=== PATIENT | male | born 1925 | race Caucasian/White ===

== ENCOUNTER 2016-06-19 09:50 | Emergency (ER) | payer MEDICARE, BC ==
--- NOTE | 2016-06-19 11:43 | EDM.PDOC ---
ED HPI Trauma - General Chief Complaint: Lower Extremity Injury/Pain Stated Complaint: SWOLLEN FOOT Time Seen by Provider: 06/19/16 10:03 Source: Reports: Patient, Family History Limitations: Reports: No limitations - History of Present Illness INITIAL COMMENTS - FREE TEXT/NARRATIVE: 89 years old w m came to the ed with his son due to right leg swelling in the past few days. No pain or redness, no SOB, no chest pain or other acute medical issues. Pt drinks a lot of coffee. Symptom Onset Date: 06/16/16 Symptom Onset Time: 07:00 Occurred When: last week Occurred Where: home Method of Injury: unknown Severity: mild Pain/Injury Location: Reports: lower extremity, right Consciousness: Reports: no loss of consciousness Associated Symptoms: Reports: denies other symptoms Allergies/ADRs: Allergies No Known Allergies Allergy (Verified 06/19/16 12:20) Home Medications: Ambulatory Orders Tamsulosin HCl [Flomax] 0.4 mg PO BEDTIME 09/22/14 [Confirmed 06/19/16] Past Medical History HEENT History: Reports: None Other Respiratory History: SLEEPS USING O2 AT NIGHT PER [place] Other Gastrointestinal History: colon polyps Genitourinary History: Reports: Other (see below) Other Genitourinary History: family states he had some kidney issues and that 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 Both sons deny dialysis. Social & Family History - Tobacco Use Smoking Status *Q: Never Smoker Years of Tobacco use: 65 Packs/Tins Daily: 1 Used Tobacco, but Quit: Yes Month Tobacco Last Used: 03/2014 Second Hand Smoke Exposure: No - Alcohol Use Days Per Week of Alcohol Use: 0 - Recreational Drug Use Recreational Drug Use: No Drug Use in Last 12 Months: No Review of Systems - Review of Systems Review Of Systems: See Below Constitutional: Reports: no symptoms Eyes: Reports: no symptoms Ears: Reports: no symptoms Nose: Reports: no symptoms Mouth/Throat: Reports: no symptoms Respiratory: Reports: No Symptoms Cardiovascular: Reports: no symptoms GI/Abdominal: Reports: No symptoms Genitourinary: Reports: no symptoms Musculoskeletal: Reports: no symptoms Skin: Reports: no symptoms Neurological: Reports: No Symptoms Psychiatric: Reports: no symptoms Trauma Exam - Physical Exam Exam: See Below Exam Limited By: Physical impairment General Appearance: Reports: alert, WD/WN, mild distress Head: Reports: atraumatic, normocephalic Eyes: bilateral eye: normal inspection Ears: Reports: normal external exam Nose: Reports: normal inspection, normal mucousa, no blood Throat/Mouth: Reports: Normal inspection, Normal lips, Normal oropharynx Neck: Reports: non-tender, full range of motion, normal alignment Respiratory Exam: Reports: no respiratory distress, lungs clear, normal breath sounds Cardiovascular: Reports: normal peripheral pulses, regular rate, rhythm, no edema, no JVD, no murmur GI/Abdominal: Reports: normal bowel sounds, soft, non tender, no organomegaly (Male) Exam: Deferred Rectal (Males) Exam: Deferred Back: Reports: full range of motion, normal inspection, non-tender Extremities: Reports: pelvis stable, other (left lower leg edema) 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 No pain or redness, no SOB, no chest pain or other acute medical issues. Pt drinks a lot of coffee. PE: right leg edema, nonpitting 1+ Labs: elevated BUN/CE ratio, nl WBC Imaging: Venous Doppler was negative for DVT Impression: Lymphedema right lower leg, dehydration. Plan: D/C with instructions Last Recorded V/S: Last Vital Signs Temp 36.9 C 06/19/16 10:03 Pulse 88 06/19/16 11:45 Resp 18 06/19/16 11:45 BP 99/56 L 06/19/16 11:45 Pulse Ox 95 06/19/16 11:45 - Orders/Labs/Meds Orders: Active Orders 24 hr Category Date Time Status VL Duplex Lwr Ext Veins Ltd Rt [US] Stat Exams 06/19/16 10:19 Taken Labs: Laboratory Tests 06/19/16 06/19/16 06/19/16 Range/Units 10:27 10:27 10:27 WBC 10.7 (4.5-12.0) X10-3/uL RBC 4.36 (4.30-5.75) x10(6)uL Hgb 13.2 (11.5-15.5) g/dL Hct 39.7 (30.0-51.3) % MCV 90.9 (80-96) fL MCH 30.3 (27.7-33.6) pg MCHC 33.3 (32.2-35.4) g/dL RDW 14.1 (11.5-15.5) % Plt Count 294 (125-369) X10(3)uL MPV 8.2 (7.4-10.4) fL Neut % (Auto) 85.0 H (46-82) % Lymph % (Auto) 5.5 L (13-37) % [place] % (Auto) 8.2 (4-12) % Eos % (Auto) 1 (1.0-5.0) % Baso % (Auto) 0 (0-2) % Neut # (Auto) 9.1 H (1.6-8.3) # Lymph # (Auto) 0.6 (0.6-5.0) # [place] # (Auto) 0.9 (0.0-1.3) # Eos # (Auto) 0.1 (0.0-0.8) # Baso # (Auto) 0.0 (0.0-0.2) # PT 10.5 (8.7-11.1) INR 1.04 (0.89-1.13) Sodium 140 (135-145) mmol/L Potassium 4.8 (3.5-5.3) mmol/L Chloride 104 (100-110) mmol/L Carbon Dioxide 30 H (23-29) mmol/L BUN 29 H (8-23) mg/dL Creatinine 1.4 H (0.6-1.3) mg/dL Est Cr Clr Drug Dosing 33.93 mL/min Estimated GFR (MDRD) 48 L (>60) BUN/Creatinine Ratio 20.7 H (9-20) Glucose 125 H (80-116) mg/dL Calcium 8.9 (8.6-10.2) mg/dL Departure - Departure Time of Disposition: 11:40 Disposition: Home, Self-Care 01 Condition: good Clinical Impression: Lymphedema Instructions: Lymphedema Referrals: Avni Carlson MD [Primary Care Provider] - Forms: ED Department Discharge Additional Instructions: Please elevate r leg, please follow up with your PMD/[facility] a.s.a.p. Please increase water intake, Please come back to the if symptoms get worse acutely. - My Orders Last 24 Hours: My Active Orders 06/19/16 10:19 VL Duplex Lwr Ext Veins Ltd Rt [US] Stat - Assessment/Plan Last 24 Hours: My Active Orders 06/19/16 10:19 VL Duplex Lwr Ext Veins Ltd Rt [US] Stat
[2016-06-19 12:26] VITALS: BP 99/56
--- NOTE | 2016-06-20 12:30 | US ---
INDICATION: Swelling right lower extremity, question DVT. DUPLEX ULTRASOUND, RIGHT LOWER EXTREMITY VEINS: Utilizing 2-D real time, duplex Doppler spectral analysis, and color flow imaging, examination of the right lower extremity veins - deep veins and greater saphenous - revealed the deep venous structures and the proximal greater saphenous to be patent with normal compressibility and no evidence of deep venous thrombosis. The anterior tibial vein was difficult to visualize. The peroneal vein was not visualized. Valves were not evaluated due to patient inability to cooperate with that portion of the examination. IMPRESSION: No evidence of deep venous thrombosis. Some limitation in visualization, especially peroneal veins which were not visualized. MTDD
== END 2016-06-19 11:50 | disposition home or self-care (01) ==
LOC: FB.ED 09:50 → SUPCPDRO 09:50 → FB.ED 11:50
DX: I89.0 Lymphedema, not elsewhere classified (principal); E86.0 Dehydration
CPT/HCPCS: 36415; 80048; 85025; 85610; 93971-RT; 99283; 99284

== ENCOUNTER 2016-11-28 11:29 | Inpatient (IN) | payer MEDICARE, BC ==
--- NOTE | 2016-11-28 12:46 | EDM.PDOC ---
ED HPI GENERAL MEDICAL PROBLEM - General Chief Complaint: Lower Extremity Injury/Pain Stated Complaint: rt hip injury Time Seen by Provider: 11/28/16 12:35 Source of Information: Reports: Patient, RN History Limitations: Reports: No Limitations - History of Present Illness INITIAL COMMENTS - FREE TEXT/NARRATIVE: 89 yo male fell this past Monday and has not been able to bear wgt since. Went to the clinic and they told him he needed to come to the ER. Pain is tolerable when not bearing wgt. Pain on the right. Onset: Sudden Onset Date: 11/26/16 Duration: Day(s):, Intermittent Location: Reports: Lower Extremity, Right Quality: Reports: Ache Severity: Moderate Improves with: Reports: Rest Worsens with: Reports: Movement (especially weight bearing.) Context: Reports: Trauma (elderly fall) Associated Symptoms: Reports: No Other Symptoms Treatments PERSONNEL SPECIALIST: Reports: Other (see below) (none) - Related Data Allergies Allergy/AdvReac Type Severity Reaction Status Date / Time No Known Allergies Allergy Verified 11/28/16 12:24 Home Meds: Home Meds Tamsulosin HCl [Flomax] 0.4 mg PO BEDTIME 09/22/14 [History] Past Medical History HEENT History: Reports: None Other Respiratory History: SLEEPS USING O2 AT NIGHT PER [place] Other Gastrointestinal History: colon polyps Genitourinary History: Reports: Other (See Below) Other Genitourinary History: family states he had some kidney issues and that 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 Both sons deny dialysis. - Past Surgical History GI Surgical History: Reports: Colonoscopy Social & Family History - Tobacco Use Smoking Status *Q: Former Smoker Years of Tobacco use: 65 Packs/Tins Daily: 1 Used Tobacco, but Quit: Yes Month Tobacco Last Used: 2014 Second Hand Smoke Exposure: No - Alcohol Use Days Per Week of Alcohol Use: 0 - Recreational Drug Use Recreational Drug Use: No Drug Use in Last 12 Months: No Review of Systems - Review of Systems Review Of Systems: See Below Constitutional: Reports: No Symptoms Eyes: Reports: No Symptoms Ears: Reports: No Symptoms Nose: Reports: No Symptoms Mouth/Throat: Reports: No Symptoms Respiratory: Reports: No Symptoms Cardiovascular: Reports: No Symptoms GI/Abdominal: Reports: No Symptoms Genitourinary: Reports: No Symptoms Musculoskeletal: Reports: Joint Pain (R hip) Skin: Reports: No Symptoms Neurological: Reports: No Symptoms ED EXAM, GENERAL - Physical Exam Exam: See Below Exam Limited By: No Limitations General Appearance: WD/WN, No Apparent Distress Course - Vital Signs Last Recorded V/S: Last Vital Signs Temp 36.9 C 11/28/16 12:26 Pulse 63 11/28/16 12:26 Resp 16 11/28/16 12:26 BP 111/51 L 11/28/16 12:26 Pulse Ox 98 11/28/16 12:26 - Orders/Labs/Meds Orders: Active Orders 24 hr Category Date Time Status Hip Min 2V or 3V w Pelvis Rt [CR] Stat Exams 11/28/16 12:34 Ordered BASIC METABOLIC PANEL,BMP [CHEM] Stat Lab 11/28/16 13:12 Ordered CBC W/O DIFF,HEMOGRAM [HEME] Stat Lab 11/28/16 13:12 Ordered UA W/MICROSCOPIC [URIN] Stat Lab 11/28/16 13:12 Uncollected Departure - Departure Time of Disposition: 13:27 Disposition: Admitted As Inpatient 68 Condition: Fair Clinical Impression: Acute pelvic pain Pelvic fracture Qualifiers: Encounter type: initial encounter Pelvic bone location: other part of pelvis Fracture type: closed Qualified Code(s): S32.89XA - Fracture of other parts of pelvis, initial encounter for closed fracture - Discharge Information Referrals: Avni Carlson MD [Primary Care Provider] - Forms: ED Department Discharge - My Orders Last 24 Hours: My Active Orders 11/28/16 12:34 Hip Min 2V or 3V w Pelvis Rt [CR] Stat 11/28/16 13:12 BASIC METABOLIC PANEL,BMP [CHEM] Stat CBC W/O DIFF,HEMOGRAM [HEME] Stat UA W/MICROSCOPIC [URIN] Stat - Assessment/Plan Last 24 Hours: My Active Orders 11/28/16 12:34 Hip Min 2V or 3V w Pelvis Rt [CR] Stat 11/28/16 13:12 BASIC METABOLIC PANEL,BMP [CHEM] Stat CBC W/O DIFF,HEMOGRAM [HEME] Stat UA W/MICROSCOPIC [URIN] Stat
[2016-11-28] MEDS ORDERED: Sodium Chloride 0.9% 10 ML Syringe FLUSH PRN (13:31)
[2016-11-28] MEDS ORDERED: Acetaminophen 325 MG Tab PO PRN (13:31)
[2016-11-28] MEDS ORDERED: Polyethylene Glycol 3350 Powder 17 GM Packet PO PRN (13:31)
[2016-11-28] MEDS ORDERED: Ondansetron 4 MG Tab.DIS PO PRN (13:31)
--- NOTE | 2016-11-28 14:01 | CR ---
INDICATION: Fall, unable to bear weight. PELVIS WITH RIGHT HIP: Frontal view of the pelvis with AP and lateral views of the right hip revealed somewhat transverse fractures through the inferior and superior pubic rami on the right with approximately 3-mm inferior offset of the medial superior ramus fracture fragment and only very minimal offset at the inferior pubic ramus fracture site. The hip itself appears to be intact with only mild degenerative changes present and the hip joint space well maintained. There are some degenerative changes at the sacroiliac joints. Degenerative changes and disk disease are noted in the visualized lumbosacral spine. IMPRESSION: Inferior and superior pubic ramus fracture sites on the right. Adequate position and alignment suggested. MTDD
[2016-11-28] MEDS: Acetaminophen/HYDROcodone 325-5 MG Tab PO PRN (14:31)
--- NOTE | 2016-11-28 17:29 | PCM.HP ---
H&P History of Present Illness - General Date of Service: 11/28/16 Admit Problem/Dx: Admission Diagnosis/Problem Admission Diagnosis/Problem Fracture of pelvis Source of Information: EMS History Limitations: Reports: Altered Mental Status - History of Present Illness Initial Comments - Free Text/Narative: This 89-year-old male patient that fell 2 days ago. Was brought to clinic and then sent to ER was diagnosed pelvic fracture. I asked cautious the patient is completely confused. He thinks he is in [place] and denies any pain in his pelvis. He doesn't know why he is here or where he is at. I cut the information from the ER doctor's note. - Related Data Allergies/Adverse Reactions: Allergies Allergy/AdvReac Type Severity Reaction Status Date / Time No Known Allergies Allergy Verified 11/28/16 12:24 Home Medications: Home Meds Tamsulosin HCl [Flomax] 0.4 mg PO BEDTIME 09/22/14 [History] Acetaminophen [Tylenol Extra Strength] 1,000 mg PO BID 11/28/16 [History] Past Medical History HEENT History: Reports: Cataract, Hard of Hearing, Impaired Vision Cardiovascular History: Reports: Heart Failure Respiratory History: Reports: COPD, Other (See Below) Other Respiratory History: SLEEPS USING O2 AT NIGHT PER [place], acute respiratory failure, 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, Gastrointestinal History: Reports: Colon Polyp Other Gastrointestinal History: colon polyps Genitourinary History: Reports: Acute Renal Failure, BPH, Retention, Urinary, Other (See Below) Other Genitourinary History: hematuria, CKD, Musculoskeletal History: Reports: Back Pain, Chronic, Gout Neurological History: Reports: Other (See Below) Other Neuro History: spinal meningitis Psychiatric History: Reports: Dementia, Psychosis, Other (See Below) Other Psychiatric History: Alteration of consciousness Hematologic History: Reports: Anemia, Other (See Below) Other Hematologic History: leukocytosis Oncologic (Cancer) History: Reports: Other (See Below) Other Oncologic History: skin - Past Surgical History GI Surgical History: Reports: Colonoscopy, Other (See Below) Other GI Surgeries/Procedures: colon surgery Social & Family History - Tobacco Use Smoking Status *Q: Former Smoker Years of Tobacco use: 72 Packs/Tins Daily: 1.5 Used Tobacco, but Quit: Yes Month Tobacco Last Used: 2014 Second Hand Smoke Exposure: No - Caffeine Use Caffeine Use: Reports: Coffee - Alcohol Use Days Per Week of Alcohol Use: 0 - Recreational Drug Use Recreational Drug Use: No Drug Use in Last 12 Months: No H&P Review of Systems - Review of Systems: Review Of Systems: Unable To Obtain Exam - Exam Exam: See Below - Vital Signs Vital Signs: Last Vital Signs Temp 98.0 F 11/28/16 16:00 Pulse 85 11/28/16 16:00 Resp 18 11/28/16 16:00 BP 123/63 11/28/16 16:00 Pulse Ox 93 L 11/28/16 16:00 Weight: 149 lb 8 oz - Exam General: Alert, Cooperative. No: Oriented, Mild Distress HEENT: Mucosa Moist & [place], Posterior Pharynx Clear Neck: Supple, Trachea Midline. No: Carotid Bruit Lungs: Clear to Auscultation, Normal Respiratory Effort. No: Crackles, Rales, Rhonchi Cardiovascular: Regular Rate, Regular Rhythm. No: Systolic Murmur, Diastolic Murmur GI/Abdominal Exam: Normal Bowel Sounds, Soft, Non-Tender, No Organomegaly, No Distention Extremities: Other (Patient has some pain when he laxatives quadriceps. I did not palpate his pelvis.) Neurological: Normal Speech, Normal Tone Neuro Extensive - Mental Status: Alert, Normal Mood/Affect. No: Oriented x3, Normal Cognition Psychiatric: Alert, Normal Affect, Normal Mood - Patient Data Lab Results Last 24 hrs: Laboratory Results - last 24 hr 11/28/16 Range/Units 14:00 Urine Color Yellow (YELLOW) Urine Appearance Clear (CLEAR) Urine pH 7.0 H (5.0-6.5) Ur Specific [place] 1.010 (1.010-1.025) Urine Protein Negative (NEGATIVE) mg/dL Urine Glucose (UA) Normal (NEGATIVE) mg/dL Urine Ketones Negative (NEGATIVE) mg/dL Urine Occult Blood Negative (NEGATIVE) Urine Nitrite Negative (NEGATIVE) Urine Bilirubin Negative (NEGATIVE) Urine Urobilinogen Normal (NEGATIVE) mg/dL Ur Leukocyte Esterase Negative (NEGATIVE) Urine RBC 0-5 (0) Urine WBC 0-5 (0) Ur Squamous Epith Cells Occasional (NS,R,O) Urine Bacteria Rare H (NS) Result Diagrams: 11/28/16 13:28 11/28/16 13:28 *Q Meaningful Use (ADM) - VTE *Q VTE Criteria *Q: - Stroke *Q Stroke Criteria *Q: - AMI *Q AMI Criteria *Q: - Problem List (1) Confusion SNOMED Code(s): 261729683 ICD Code: R41.0 - DISORIENTATION, UNSPECIFIED Status: Acute Current Visit : Yes (2) Palliative care status SNOMED Code(s): 197092846 ICD Code: Z51.5 - ENCOUNTER FOR PALLIATIVE CARE Status: Acute Current Visit: Yes (3) Pelvic fracture SNOMED Code(s): 06190962 ICD Code: S32.9XXA - FRACTURE OF UNSP PARTS OF LUMBOSACRAL SPINE AND PELVIS, INIT Status: Acute Current Visit: Yes Qualifiers: Encounter type: initial encounter Pelvic bone location: other part of pelvis Fracture type: closed Qualified Code(s): S32.89XA - Fracture of other parts of pelvis, initial encounter for closed fracture Problem List Initiated/Reviewed/Updated: Yes Orders Last 24hrs: Active Orders 24 hr Category Date Time Status Patient Status [ADT] Routine ADT 11/28/16 13:31 Active Height and Weight [RC] DAILY Care 11/28/16 13:31 Active Intake and Output [RC] 1400,22,06 Care 11/28/16 13:32 Active Oxygen Therapy [RC] PRN Care 11/28/16 13:31 Active Vital Signs [RC] Q4H Care 11/28/16 13:31 Active Regular Diet [DIET] Diet 11/28/16 Lunch Active Acetaminophen [Tylenol] Med 11/28/16 13:31 Active 650 mg PO Q4H PRN Acetaminophen/HYDROcodone [[place] 325-5 MG] Med 11/28/16 13:31 Active 1 tab PO Q4H PRN Ondansetron [Zofran ODT] Med 11/28/16 13:31 Active 4 mg PO Q6H PRN Polyethylene Glycol 3350 [MiraLAX] Med 11/28/16 13:31 Active 17 gm PO DAILY PRN Sodium Chloride 0.9% [Saline Flush] Med 11/28/16 13:31 Active 10 ml FLUSH ASDIRECTED PRN Tamsulosin [Flomax] Med 11/28/16 21:00 Active 0.4 mg PO BEDTIME Antiembolic Hose [OM.PC] Per Unit Routine Oth 11/28/16 13:33 Ordered Saline Lock Insert [OM.PC] Routine Oth 11/28/16 13:31 Ordered Resuscitation Status Routine Resus Stat 11/28/16 13:31 Ordered Medication Orders Acetaminophen (Tylenol) 650 mg PO Q4H PRN PRN Reason: Pain (Mild 1-3)/fever Hydrocodone Bitart/Acetaminophen ([place] 325-5 Mg) 1 tab PO Q4H PRN PRN Reason: Pain (moderate 4-6) Last Admin: 11/28/16 14:31 Dose: 1 tab Ondansetron HCl (Zofran Odt) 4 mg PO Q6H PRN PRN Reason: nausea, able to take PO Polyethylene Glycol (Miralax) 17 gm PO DAILY PRN PRN Reason: Constipation Sodium Chloride (Saline Flush) 10 ml FLUSH ASDIRECTED PRN PRN Reason: Keep Vein Open Last Admin: 11/28/16 16:08 Dose: 10 ml Tamsulosin HCl (Flomax) 0.4 mg PO BEDTIME LETITIA Assessment/Plan Comment:: . Admit the patient for pain control. 2. Restart his current medications. 3. Regular diet. 4. Up with assist. Weightbearing as tolerated with the patient. 5. OT/PT. 6. SCD 7. Lovenox 30 mg daily subcutaneous.
[2016-11-28] MEDS: Tamsulosin 0.4 MG Cap.ER PO SCH (20:31)
[2016-11-28] MEDS: Enoxaparin 30 MG/0.3 ML Syringe SUBCUT SCH (20:57)
[2016-11-29] MEDS: Acetaminophen/HYDROcodone 325-5 MG Tab PO PRN ×4 (01:30→23:37)
--- NOTE | 2016-11-29 08:15 | PCM.PN ---
- General Info Date of Service: 11/29/16 Admission Dx/Problem (Free Text): The patient is confused. He does not know aureus. He says he has some low back pain. Denies any pelvic pain, hip pain or leg pain. He denies shortness of breath, chest pain. - Patient Data Vitals - Most Recent: Last Vital Signs Temp 98.3 F 11/29/16 00:30 Pulse 85 11/29/16 00:30 Resp 18 11/29/16 04:00 BP 138/80 11/29/16 00:30 Pulse Ox 98 11/29/16 00:30 Weight - Most Recent: 147 lb 4.8 oz I&O - Last 24 Hours: Intake & Output 11/28/16 11/29/16 11/29/16 22:59 06:59 14:59 Intake Total 680 Output Total 200 Balance 480 Lab Results Last 24 Hours: Laboratory Results - last 24 hr 11/28/16 Range/Units 14:00 Urine Color Yellow (YELLOW) Urine Appearance Clear (CLEAR) Urine pH 7.0 H (5.0-6.5) Ur Specific [place] 1.010 (1.010-1.025) Urine Protein Negative (NEGATIVE) mg/dL Urine Glucose (UA) Normal (NEGATIVE) mg/dL Urine Ketones Negative (NEGATIVE) mg/dL Urine Occult Blood Negative (NEGATIVE) Urine Nitrite Negative (NEGATIVE) Urine Bilirubin Negative (NEGATIVE) Urine Urobilinogen Normal (NEGATIVE) mg/dL Ur Leukocyte Esterase Negative (NEGATIVE) Urine RBC 0-5 (0) Urine WBC 0-5 (0) Ur Squamous Epith Cells Occasional (NS,R,O) Urine Bacteria Rare H (NS) Med Orders - Current: Current Medications Acetaminophen (Tylenol) 650 mg PO Q4H PRN PRN Reason: Pain (Mild 1-3)/fever Hydrocodone Bitart/Acetaminophen ([place] 325-5 Mg) 1 tab PO Q4H PRN PRN Reason: Pain (moderate 4-6) Last Admin: 11/29/16 01:30 Dose: 1 tab Enoxaparin Sodium (Lovenox) 30 mg SUBCUT Q24H LTEITIA Last Admin: 11/28/16 20:57 Dose: 30 mg Ondansetron HCl (Zofran Odt) 4 mg PO Q6H PRN PRN Reason: nausea, able to take PO Polyethylene Glycol (Miralax) 17 gm PO DAILY PRN PRN Reason: Constipation Sodium Chloride (Saline Flush) 10 ml FLUSH ASDIRECTED PRN PRN Reason: Keep Vein Open Last Admin: 11/28/16 16:08 Dose: 10 ml Tamsulosin HCl (Flomax) 0.4 mg PO BEDTIME LETITIA Last Admin: 11/28/16 20:31 Dose: 0.4 mg - Exam General: Alert, Cooperative. No: Oriented Lungs: Normal Respiratory Effort Extremities: Normal Inspection, Non-Tender, No Pedal Edema. No: Normal Range of Motion Neurological: Normal Speech Psy/Mental Status: Alert, Normal Affect, Normal Mood - Problem List & Annotations (1) Confusion SNOMED Code(s): 728843611 Code(s): R41.0 - DISORIENTATION, UNSPECIFIED Status: Acute Current Visit : Yes (2) Palliative care status SNOMED Code(s): 553970025 Code(s): Z51.5 - ENCOUNTER FOR PALLIATIVE CARE Status: Acute Current Visit: Yes (3) Pelvic fracture SNOMED Code(s): 07296686 Code(s): S32.9XXA - FRACTURE OF UNSP PARTS OF LUMBOSACRAL SPINE AND PELVIS, INIT Status: Acute Current Visit: Yes Qualifiers: Encounter type: initial encounter Pelvic bone location: other part of pelvis Fracture type: closed Qualified Code(s): S32.89XA - Fracture of other parts of pelvis, initial encounter for closed fracture - Problem List Review Problem List Initiated/Reviewed/Updated: Yes - My Orders Last 24 Hours: My Active Orders 11/28/16 17:30 Up With Assistance [RC] ,,, Consult to Occupational Therapy [OT Evaluation and Treatment] [CONS] Routine Consult to Physical Therapy [PT Evaluation and Treatment] [CONS] Routine 11/28/16 17:33 Activity as Tolerated [RC] ,,,11/28/16 17:43 SCD [Sequential Compression Device] [OM.PC] Routine 11/28/16 21:00 Enoxaparin [Lovenox] 30 mg SUBCUT Q24H - Plan Plan:: 1. PT/OT consultation. 2. Social service consultation in regards to whether the patient should be going for rehabilitation.
[2016-11-29] MEDS: Enoxaparin 30 MG/0.3 ML Syringe SUBCUT SCH (20:00)
[2016-11-29] MEDS: Tamsulosin 0.4 MG Cap.ER PO SCH (20:00)
--- NOTE | 2016-11-30 08:46 | PCM.PN ---
- General Info Date of Service: 11/30/16 Admission Dx/Problem (Free Text): Patient without complaints. He denies any pelvic or hip pain. But he does not remember me he denied been in the room the last 2 days. - Patient Data Vitals - Most Recent: Last Vital Signs Temp 98.9 F 11/30/16 03:15 Pulse 78 11/30/16 08:00 Resp 20 11/30/16 08:00 BP 123/67 11/30/16 08:00 Pulse Ox 93 L 11/30/16 08:00 Weight - Most Recent: 149 lb 1.6 oz I&O - Last 24 Hours: Intake & Output 11/29/16 11/30/16 11/30/16 22:59 06:59 14:59 Intake Total 200 Output Total 225 810 Balance -25 -810 Med Orders - Current: Current Medications Acetaminophen (Tylenol) 650 mg PO Q4H PRN PRN Reason: Pain (Mild 1-3)/fever Hydrocodone Bitart/Acetaminophen ([place] 325-5 Mg) 1 tab PO Q4H PRN PRN Reason: Pain (moderate 4-6) Last Admin: 11/29/16 23:37 Dose: 1 tab Enoxaparin Sodium (Lovenox) 30 mg SUBCUT Q24H LETITIA Last Admin: 11/29/16 20:00 Dose: 30 mg Ondansetron HCl (Zofran Odt) 4 mg PO Q6H PRN PRN Reason: nausea, able to take PO Polyethylene Glycol (Miralax) 17 gm PO DAILY PRN PRN Reason: Constipation Sodium Chloride (Saline Flush) 10 ml FLUSH ASDIRECTED PRN PRN Reason: Keep Vein Open Last Admin: 11/28/16 16:08 Dose: 10 ml Tamsulosin HCl (Flomax) 0.4 mg PO BEDTIME LETITIA Last Admin: 11/29/16 20:00 Dose: 0.4 mg - Exam General: Alert, Cooperative. No: Oriented Lungs: Clear to Auscultation, Normal Respiratory Effort Cardiovascular: Regular Rate, Regular Rhythm, No Murmurs Psy/Mental Status: Alert, Normal Affect, Normal Mood - Problem List & Annotations (1) Palliative care status SNOMED Code(s): 338258580 Code(s): Z51.5 - ENCOUNTER FOR PALLIATIVE CARE Status: Acute Current Visit: Yes (2) Pelvic fracture SNOMED Code(s): 86047789 Code(s): S32.9XXA - FRACTURE OF UNSP PARTS OF LUMBOSACRAL SPINE AND PELVIS, INIT Status: Acute Current Visit: Yes Qualifiers: Encounter type: initial encounter Pelvic bone location: other part of pelvis Fracture type: closed Qualified Code(s): S32.89XA - Fracture of other parts of pelvis, initial encounter for closed fracture (3) Dementia SNOMED Code(s): 47117823 Code(s): F03.90 - UNSPECIFIED DEMENTIA WITHOUT BEHAVIORAL DISTURBANCE Status: Acute Current Visit: Yes - Problem List Review Problem List Initiated/Reviewed/Updated: Yes - Plan Plan:: 1. PT/OT. 2. Social service consultation in regards to whether the patient should be going for rehabilitation.
[2016-11-30] MEDS: Acetaminophen/HYDROcodone 325-5 MG Tab PO PRN ×2 (09:05→19:30)
[2016-11-30] MEDS: Polyethylene Glycol 3350 Powder 17 GM Packet PO SCH (11:18)
[2016-11-30] MEDS: Acetaminophen 500 MG Tab PO SCH ×2 (14:19→21:22)
[2016-11-30] MEDS: Enoxaparin 30 MG/0.3 ML Syringe SUBCUT SCH (21:22)
[2016-11-30] MEDS: Tamsulosin 0.4 MG Cap.ER PO SCH (21:22)
[2016-12-01] MEDS: Polyethylene Glycol 3350 Powder 17 GM Packet PO SCH (08:26)
[2016-12-01] MEDS: Acetaminophen 500 MG Tab PO SCH (08:26)
--- NOTE | 2016-12-01 08:32 | PCM.PN ---
- General Info Date of Service: 12/01/16 Admission Dx/Problem (Free Text): 89-year-old with dementia with pelvic fracture. He does remember today that he thinks he is in the hospital. He denies any pain, chest pain or shortness of breath. The nurse stated that last night when he sits down he complains of discomfort over the pelvis. - Patient Data Vitals - Most Recent: Last Vital Signs Temp 97.6 F 12/01/16 04:00 Pulse 66 12/01/16 04:00 Resp 16 12/01/16 04:00 BP 134/72 12/01/16 04:00 Pulse Ox 92 L 12/01/16 05:57 Weight - Most Recent: 148 lb 6 oz I&O - Last 24 Hours: Intake & Output 11/30/16 12/01/16 12/01/16 22:59 06:59 14:59 Intake Total 200 Output Total 840 Balance -640 Med Orders - Current: Current Medications Acetaminophen (Tylenol) 650 mg PO Q4H PRN PRN Reason: Pain (Mild 1-3)/fever Acetaminophen (Tylenol Extra Strength) 1,000 mg PO TID [facility] Last Admin: 12/01/16 08:26 Dose: 1,000 mg Hydrocodone Bitart/Acetaminophen ([place] 325-5 Mg) 1 tab PO Q4H PRN PRN Reason: Pain (moderate 4-6) Last Admin: 11/30/16 19:30 Dose: 1 tab Enoxaparin Sodium (Lovenox) 30 mg SUBCUT Q24H [facility] Last Admin: 11/30/16 21:22 Dose: 30 mg Ondansetron HCl (Zofran Odt) 4 mg PO Q6H PRN PRN Reason: nausea, able to take PO Polyethylene Glycol (Miralax) 17 gm PO DAILY PRN PRN Reason: Constipation Last Admin: 11/30/16 09:05 Dose: 17 gm Polyethylene Glycol (Miralax) 17 gm PO DAILY [facility] Last Admin: 12/01/16 08:26 Dose: 17 gm Sodium Chloride (Saline Flush) 10 ml FLUSH ASDIRECTED PRN PRN Reason: Keep Vein Open Last Admin: 11/28/16 16:08 Dose: 10 ml Tamsulosin HCl (Flomax) 0.4 mg PO BEDTIME [facility] Last Admin: 11/30/16 21:22 Dose: 0.4 mg - Exam General: Alert, Cooperative. No: Oriented Lungs: Clear to Auscultation, Normal Respiratory Effort Cardiovascular: Regular Rate, Regular Rhythm Extremities: No Pedal Edema - Problem List & Annotations (1) Palliative care status SNOMED Code(s): 042177715 Code(s): Z51.5 - ENCOUNTER FOR PALLIATIVE CARE Status: Acute Current Visit: Yes (2) Pelvic fracture SNOMED Code(s): 01264975 Code(s): S32.9XXA - FRACTURE OF UNSP PARTS OF LUMBOSACRAL SPINE AND PELVIS, INIT Status: Acute Current Visit: Yes Qualifiers: Encounter type: initial encounter Pelvic bone location: other part of pelvis Fracture type: closed Qualified Code(s): S32.89XA - Fracture of other parts of pelvis, initial encounter for closed fracture (3) Dementia SNOMED Code(s): 04513022 Code(s): F03.90 - UNSPECIFIED DEMENTIA WITHOUT BEHAVIORAL DISTURBANCE Status: Acute Current Visit: Yes - Problem List Review Problem List Initiated/Reviewed/Updated: Yes - My Orders Last 24 Hours: My Active Orders 11/30/16 11:00 Polyethylene Glycol 3350 [MiraLAX] 17 gm PO DAILY 11/30/16 14:00 Acetaminophen [Tylenol Extra Strength] 1,000 mg PO TID - Plan Plan:: 1. Transfer to swing bed
--- NOTE | 2016-12-01 08:37 | PCM.DCSUM1 ---
Discharge Summary - Hospital Course Free Text/Narrative:: Hospital course-patient was admitted for pain control. Patient is very demented and does not remember anything. When I ask him if he was in pain he would deny it. But when he stood up the nurses stated he had discomfort. We were able to control his pain with Tylenol thousand milligrams 3 times a day. We avoided opioids because of his cognition. Patient had no other problems while he was here. We'll transfer to swing bed today. Brief History: This 89-year-old male patient that fell 2 days ago. Was brought to clinic and then sent to ER was diagnosed pelvic fracture. I asked cautious the patient is completely confused. He thinks he is in [place] and denies any pain in his pelvis. He doesn't know why he is here or where he is at. I cut the information from the ER doctor's note. - Discharge Data Discharge Date: 12/01/16 Discharge Disposition: DC/Tfer W/I Hosp To Swing 61 Condition: Fair - Discharge Diagnosis/Problem(s) (1) Palliative care status SNOMED Code(s): 632007175 ICD Code: Z51.5 - ENCOUNTER FOR PALLIATIVE CARE Status: Acute Current Visit: Yes (2) Pelvic fracture SNOMED Code(s): 33635772 ICD Code: S32.9XXA - FRACTURE OF UNSP PARTS OF LUMBOSACRAL SPINE AND PELVIS, INIT Status: Acute Current Visit: Yes Qualifiers: Encounter type: initial encounter Pelvic bone location: other part of pelvis Fracture type: closed Qualified Code(s): S32.89XA - Fracture of other parts of pelvis, initial encounter for closed fracture (3) Dementia SNOMED Code(s): 20452770 ICD Code: F03.90 - UNSPECIFIED DEMENTIA WITHOUT BEHAVIORAL DISTURBANCE Status: Acute Current Visit: Yes - Patient Summary/Data Consults: Consultations 11/28/16 17:30 Consult to Occupational Therapy [OT Evaluation and Treatment] [CONS] Routine Please Evaluate and Treat. OT Reason for Consult: Strengthening This query below is only for informational purposes and is not editable. Admission Diagnosis/Problem: Fracture of pelvis Consult to Physical Therapy [PT Evaluation and Treatment] [CONS] Routine Please Evaluate and Treat. PT Reason for Consult: Strengthening This query below is only for informational purposes and is not editable. Admission Diagnosis/Problem: Fracture of pelvis - Patient Instructions Diet: Regular Diet as Tolerated Activity: As Tolerated Driving: Do Not Drive Showering/Bathing: May Shower Other/Special Instructions: 1. Transfer to swing bed for physical therapy and occupational therapy and pain control. - Discharge Plan Home Medications: Home Meds Tamsulosin HCl [Flomax] 0.4 mg PO BEDTIME 09/22/14 [History] Albuterol Sulfate [Ventolin Hfa] 2 puff INH Q4H PRN 11/28/16 [History] Ipratropium/Albuterol Sulfate [Iprat-Albut 0.5-3(2.5) mg/3 ml] 1 ampule INH Q6H PRN 11/28/16 [History] Acetaminophen [Tylenol Extra Strength] 1,000 mg PO TID tablet 12/01/16 [Rx] Enoxaparin [Lovenox] 30 mg SUBCUT Q24H syringe 12/01/16 [Rx] Polyethylene Glycol 3350 [MiraLAX] 17 gm PO DAILY packet 12/01/16 [Rx] Forms: ED Department Discharge Referrals: Avni Carlson MD [Primary Care Provider] - - Patient Data Vitals - Most Recent: Last Vital Signs Temp 97.6 F 12/01/16 04:00 Pulse 66 12/01/16 04:00 Resp 16 12/01/16 04:00 BP 134/72 12/01/16 04:00 Pulse Ox 92 L 12/01/16 05:57 Weight - Most Recent: 148 lb 6 oz I&O - Last 24 hours: Intake & Output 11/30/16 12/01/16 12/01/16 22:59 06:59 14:59 Intake Total 200 Output Total 840 Balance -640 Med Orders - Current: Current Medications Acetaminophen (Tylenol) 650 mg PO Q4H PRN PRN Reason: Pain (Mild 1-3)/fever Acetaminophen (Tylenol Extra Strength) 1,000 mg PO TID LETITIA Last Admin: 12/01/16 08:26 Dose: 1,000 mg Hydrocodone Bitart/Acetaminophen ([place] 325-5 Mg) 1 tab PO Q4H PRN PRN Reason: Pain (moderate 4-6) Last Admin: 11/30/16 19:30 Dose: 1 tab Enoxaparin Sodium (Lovenox) 30 mg SUBCUT Q24H LETITIA Last Admin: 11/30/16 21:22 Dose: 30 mg Ondansetron HCl (Zofran Odt) 4 mg PO Q6H PRN PRN Reason: nausea, able to take PO Polyethylene Glycol (Miralax) 17 gm PO DAILY PRN PRN Reason: Constipation Last Admin: 11/30/16 09:05 Dose: 17 gm Polyethylene Glycol (Miralax) 17 gm PO DAILY [facility] Last Admin: 12/01/16 08:26 Dose: 17 gm Sodium Chloride (Saline Flush) 10 ml FLUSH ASDIRECTED PRN PRN Reason: Keep Vein Open Last Admin: 11/28/16 16:08 Dose: 10 ml Tamsulosin HCl (Flomax) 0.4 mg PO BEDTIME [facility] Last Admin: 11/30/16 21:22 Dose: 0.4 mg *Q Meaningful Use (DIS) - VTE *Q VTE Criteria *Q: - Stroke *Q Stroke Criteria *Q: - AMI *Q AMI Criteria *Q:
[2016-12-01 14:02] VITALS: BP 120/64
== END 2016-12-01 08:45 | disposition swing bed (61) | DRG 536 ==
LOC: FB.ED 11:29 → FB.MS 13:29
PROVIDERS: ADMIT Emergency Medicine; ATTEND Family Medicine
DX: S32.591A Other specified fracture of right pubis, initial encounter for closed fracture (principal); F03.90 Unspecified dementia, unspecified severity, without behavioral disturbance, psychotic disturbance, mood disturbance, and anxiety; Z51.5 Encounter for palliative care; N18.9 Chronic kidney disease, unspecified; J44.9 Chronic obstructive pulmonary disease, unspecified; Z87.891 Personal history of nicotine dependence; W19.XXXA Unspecified fall, initial encounter; Z79.01 Long term (current) use of anticoagulants; Z85.828 Personal history of other malignant neoplasm of skin; M54.9 Dorsalgia, unspecified; G89.29 Other chronic pain; Z99.81 Dependence on supplemental oxygen; H91.90 Unspecified hearing loss, unspecified ear; H54.7 Unspecified visual loss
CPT/HCPCS: 36415; 73502-RT; 80048; 81001; 85027; 97110-GP; 97161-GP; 97166-GO; 97530-GP; 97535-GO; 99284; A9270-GY; J1650; J7050

== ENCOUNTER 2016-12-01 08:48 | Inpatient (IN) | payer MEDICARE, BC ==
[2016-12-01] MEDS ORDERED: Albuterol 8 GM Inhaler INH PRN (09:02)
[2016-12-01] MEDS ORDERED: Albuterol/Ipratropium 3.0-0.5 MG/3 ML Neb Soln INH PRN (09:02)
[2016-12-01] MEDS: Acetaminophen 500 MG Tab PO SCH ×2 (13:02→20:59)
[2016-12-01] MEDS: Enoxaparin 30 MG/0.3 ML Syringe SUBCUT SCH (20:59)
[2016-12-01] MEDS: Tamsulosin 0.4 MG Cap.ER PO SCH (20:59)
[2016-12-02] MEDS: Polyethylene Glycol 3350 Powder 17 GM Packet PO SCH ×3 (09:29→14:34)
[2016-12-02] MEDS: Acetaminophen 500 MG Tab PO SCH ×3 (09:29→20:23)
[2016-12-02] MEDS: Enoxaparin 30 MG/0.3 ML Syringe SUBCUT SCH (20:23)
[2016-12-02] MEDS: Tamsulosin 0.4 MG Cap.ER PO SCH (20:23)
[2016-12-03] MEDS: Acetaminophen 500 MG Tab PO SCH ×3 (09:22→20:28)
[2016-12-03] MEDS: Polyethylene Glycol 3350 Powder 17 GM Packet PO SCH (09:22)
[2016-12-03] MEDS: QUEtiapine 25 MG Tab PO SCH (20:27)
[2016-12-03] MEDS: Enoxaparin 30 MG/0.3 ML Syringe SUBCUT SCH (20:28)
[2016-12-03] MEDS: Tamsulosin 0.4 MG Cap.ER PO SCH (20:28)
[2016-12-04] MEDS: QUEtiapine 25 MG Tab PO SCH ×2 (00:54→20:18)
[2016-12-04] MEDS: Acetaminophen 500 MG Tab PO SCH ×3 (09:01→20:19)
[2016-12-04] MEDS: Polyethylene Glycol 3350 Powder 17 GM Packet PO SCH (09:01)
[2016-12-04] MEDS: Tamsulosin 0.4 MG Cap.ER PO SCH (20:18)
[2016-12-04] MEDS: Enoxaparin 30 MG/0.3 ML Syringe SUBCUT SCH (20:18)
[2016-12-05] MEDS: Acetaminophen 500 MG Tab PO SCH ×3 (08:34→20:27)
[2016-12-05] MEDS: Polyethylene Glycol 3350 Powder 17 GM Packet PO SCH (08:34)
[2016-12-05] MEDS: Enoxaparin 30 MG/0.3 ML Syringe SUBCUT SCH (20:27)
[2016-12-05] MEDS: Tamsulosin 0.4 MG Cap.ER PO SCH (20:27)
[2016-12-05] MEDS: QUEtiapine 25 MG Tab PO SCH (20:27)
[2016-12-06] MEDS: Polyethylene Glycol 3350 Powder 17 GM Packet PO SCH (10:41)
[2016-12-06] MEDS: Acetaminophen 500 MG Tab PO SCH ×3 (10:42→21:47)
[2016-12-06] MEDS: Enoxaparin 30 MG/0.3 ML Syringe SUBCUT SCH (20:25)
[2016-12-06] MEDS: Tamsulosin 0.4 MG Cap.ER PO SCH (21:46)
[2016-12-06] MEDS: QUEtiapine 25 MG Tab PO SCH (21:47)
[2016-12-07] MEDS: Acetaminophen 500 MG Tab PO SCH ×3 (09:05→21:24)
[2016-12-07] MEDS: Polyethylene Glycol 3350 Powder 17 GM Packet PO SCH (09:05)
[2016-12-07] MEDS: Enoxaparin 30 MG/0.3 ML Syringe SUBCUT SCH (21:24)
[2016-12-07] MEDS: QUEtiapine 25 MG Tab PO SCH (21:24)
[2016-12-07] MEDS: Tamsulosin 0.4 MG Cap.ER PO SCH (21:24)
[2016-12-08] MEDS: Polyethylene Glycol 3350 Powder 17 GM Packet PO SCH (08:08)
[2016-12-08] MEDS: Acetaminophen 500 MG Tab PO SCH ×3 (08:08→22:23)
[2016-12-08] MEDS: Tamsulosin 0.4 MG Cap.ER PO SCH (22:23)
[2016-12-08] MEDS: Enoxaparin 30 MG/0.3 ML Syringe SUBCUT SCH (22:24)
[2016-12-08] MEDS: QUEtiapine 25 MG Tab PO SCH (22:24)
[2016-12-09] MEDS: Polyethylene Glycol 3350 Powder 17 GM Packet PO SCH (08:54)
[2016-12-09] MEDS: Acetaminophen 500 MG Tab PO SCH (08:54)
[2016-12-09] MEDS ORDERED: Tuberculin, PPD 5 Units/0.1 ML 1 ML MDV IDERM ONE (10:07)
[2016-12-09 10:51] VITALS: BP 146/85
--- NOTE | 2016-12-09 13:11 | DISCH ---
DISCHARGE DATE: 12/09/2016 REASON FOR ADMISSION: 1. Pelvic fracture, stable. 2. Delirium. CONSULTATION: Physical therapy. BRIEF HISTORY AND HOSPITAL COURSE: An 89-year-old male admitted first to the acute care side and then to the swing bed because of a pelvic fracture that was found to be stable. He was treated nonoperatively with physical and occupational therapies, ready to go home today. During the hospitalization, he was noted to be extremely agitated, confused, mostly in the evenings. I started him on Seroquel 25 mg a day at night, which seemed to help significantly. Tylenol was also controlling his pain, and he was given scheduled MiraLAX, which helped with constipation. I am discharging him home today on the following medications: DISCHARGE MEDICATIONS: 1. I will do the MiraLAX p.r.n. 17 g. 2. Seroquel 25 mg at bedtime. 3. Tylenol to use 1,000 mg t.i.d. 4. He will also go home on albuterol p.r.n. as an inhaler. 5. Flomax 0.4 mg at bedtime. FOLLOWUP: He will continue with physical and occupational therapy at home and see his PCP at the clinic in [place] in 1 week. I spent more than 35 minutes in the discharge of the patient. /[id number] Marquise SUE/CYRUS
== END 2016-12-09 10:25 | DRG 561 ==
LOC: FB.MS 08:48
PROVIDERS: ADMIT Family Medicine; ATTEND Family Medicine
DX: S32.591D Other specified fracture of right pubis, subsequent encounter for fracture with routine healing (principal); R41.0 Disorientation, unspecified; R45.1 Restlessness and agitation; K59.00 Constipation, unspecified; W19.XXXD Unspecified fall, subsequent encounter
CPT/HCPCS: 86580; 97110-GP; 97116-GP; 97530-GO; 97530-GO-KX; 97530-GP; 97535-GO; 97542-GO; A9270-GY; J1650

== ENCOUNTER 2017-03-04 11:33 | Emergency (ER) | payer MEDICARE, BC ==
--- NOTE | 2017-03-04 14:01 | EDM.PDOC ---
ED HPI GENERAL MEDICAL PROBLEM - General Chief Complaint: Lower Extremity Injury/Pain Stated Complaint: LEFT THIGH PAIN Time Seen by Provider: 03/04/17 12:05 Source of Information: Reports: Patient, Senior Living Records History Limitations: Reports: Other (Memory Loss.) - History of Present Illness INITIAL COMMENTS - FREE TEXT/NARRATIVE: Patient is an 89 year old man with a history of pelvis fracture who is having pain in the left groin and hip area, so he was sent from the Assisted Living to the ED for further evaluation and treatment. The pain is almost gone in the left hip and groin area by the time he got to the ED. 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 Left Upper Leg Pain Score (Numeric/FACES): 8 - Related Data Allergies Allergy/AdvReac Type Severity Reaction Status Date / Time No Known Allergies Allergy Verified 03/04/17 11:56 Home Meds: Home Meds Tamsulosin HCl [Flomax] 0.4 mg PO BEDTIME 09/22/14 [History] Albuterol Sulfate [Ventolin Hfa] 2 puff INH Q4H PRN 11/28/16 [History] Ipratropium/Albuterol Sulfate [Iprat-Albut 0.5-3(2.5) mg/3 ml] 1 ampule INH Q6H PRN 11/28/16 [History] Acetaminophen [Tylenol Extra Strength] 1,000 mg PO TID #60 tablet 12/09/16 [Rx] Polyethylene Glycol 3350 [MiraLAX] 17 gm PO DAILY PRN #30 packet 12/09/16 [Rx] Past Medical History HEENT History: Reports: Cataract, Hard of Hearing, Impaired Vision Cardiovascular History: Reports: Heart Failure Respiratory History: Reports: COPD, Other (See Below) Other Respiratory History: SLEEPS USING O2 AT NIGHT PER NC, acute respiratory failure, 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, Gastrointestinal History: Reports: Colon Polyp Other Gastrointestinal History: colon polyps Genitourinary History: Reports: Acute Renal Failure, BPH, Retention, Urinary, Other (See Below) Other Genitourinary History: hematuria, CKD, Musculoskeletal History: Reports: Back Pain, Chronic, Fracture, Gout, Other ( See Below) Other Musculoskeletal History: fx pelvic Neurological History: Reports: Other (See Below) Other Neuro History: spinal meningitis Psychiatric History: Reports: Dementia, Psychosis, Other (See Below) Other Psychiatric History: Alteration of consciousness Hematologic History: Reports: Anemia, Other (See Below) Other Hematologic History: leukocytosis Oncologic (Cancer) History: Reports: Other (See Below) Other Oncologic History: skin - Past Surgical History GI Surgical History: Reports: Colonoscopy, Other (See Below) Other GI Surgeries/Procedures: colon surgery Social & Family History - Family History Family Medical History: Noncontributory - Tobacco Use Smoking Status *Q: Unknown Ever Smoked Years of Tobacco use: 72 Packs/Tins Daily: 1.5 Used Tobacco, but Quit: Yes Month Tobacco Last Used: 2014 Second Hand Smoke Exposure: No - Caffeine Use Caffeine Use: Reports: Coffee - Alcohol Use Days Per Week of Alcohol Use: 0 - Recreational Drug Use Recreational Drug Use: No Drug Use in Last 12 Months: No Review of Systems - Review of Systems Review Of Systems: ROS reveals no pertinent complaints other than HPI. ED EXAM, GENERAL - Physical Exam Exam: See Below Exam Limited By: No Limitations General Appearance: Alert Eye Exam: Bilateral Eye: EOMI, Normal Fundi, Normal Inspection, PERRL Ears: Normal External Exam, Normal Canal, Hearing Grossly Normal, Normal TMs Ear Exam: Bilateral Ear: Auricle Normal, Canal Normal, TM normal Throat/Mouth: Normal Inspection Head: Atraumatic, Normocephalic Neck: Carotid Bruit Respiratory/Chest: No Respiratory Distress, Lungs Clear, Normal Breath Sounds, No Accessory Muscle Use, Chest Non-Tender Cardiovascular: Normal Peripheral Pulses, Regular Rate, Rhythm, No Edema, No Gallop, No JVD, No Murmur, No Rub Peripheral Pulses: 3+: Posterior Tibial (L), Posterior Tibial (R), Dorsalis Pedis (L), Dorsalis Pedis (R) GI/Abdominal: Normal Bowel Sounds, Soft, Non-Tender, No Organomegaly, No Distention, No Abnormal Bruit, No Mass Back Exam: Normal Inspection, Full Range of Motion, NT Extremities: Other (Patient has pain over the left anterior hip/groin area that is minimal. CT shows no acute pelvis fracture or abnormalities.) Neurological: Alert, Oriented, CN II-XII Intact, Normal Cognition, Normal Gait, Normal Reflexes, No Motor/Sensory Deficits Course - Vital Signs Text/Narrative:: Uneventful ED course. He wanted to leave as soon as he got here. Will follow up as planned next week. Continue same medications and treatments. Last Recorded V/S: Last Vital Signs Temp 36.9 C 03/04/17 11:58 Pulse 71 03/04/17 11:58 Resp 18 03/04/17 11:58 BP 128/74 03/04/17 11:58 Pulse Ox 92 L 03/04/17 11:58 - Orders/Labs/Meds Orders: Active Orders 24 hr Category Date Time Status Pelvis wo Cont [CT] Stat Exams 03/04/17 11:42 Taken Labs: Laboratory Tests 03/04/17 03/04/17 Range/Units 12:05 12:05 WBC 11.1 (4.5-12.0) X10-3/uL RBC 4.08 L (4.30-5.75) x10(6)uL Hgb 12.2 (11.5-15.5) g/dL Hct 38.4 (30.0-51.3) % MCV 94.1 (80-96) fL MCH 30.0 (27.7-33.6) pg MCHC 31.9 L (32.2-35.4) g/dL RDW 15.4 (11.5-15.5) % Plt Count 365 (125-369) X10(3)uL MPV 9.0 (7.4-10.4) fL Neut % (Auto) 79.3 (46-82) % Lymph % (Auto) 9.1 L (13-37) % [place] % (Auto) 9.9 (4-12) % Eos % (Auto) 1 (1.0-5.0) % Baso % (Auto) 0 (0-2) % Neut # (Auto) 8.9 H (1.6-8.3) # Lymph # (Auto) 1.0 (0.6-5.0) # [place] # (Auto) 1.1 (0.0-1.3) # Eos # (Auto) 0.1 (0.0-0.8) # Baso # (Auto) 0.0 (0.0-0.2) # Sodium 140 (135-145) mmol/L Potassium 4.9 (3.5-5.3) mmol/L Chloride 105 (100-110) mmol/L Carbon Dioxide 30 (21-32) mmol/L BUN 25 H (7-18) mg/dL Creatinine 1.3 (0.70-1.30) mg/dL Est Cr Clr Drug Dosing 32.26 mL/min Estimated GFR (MDRD) 52 L (>60) BUN/Creatinine Ratio 19.2 (9-20) Glucose 91 (80-116) mg/dL Calcium 9.1 (8.6-10.2) mg/dL Total Bilirubin 0.7 (0.1-1.3) mg/dL AST 15 (5-25) IU/L ALT 16 (12-36) U/L Alkaline Phosphatase 118 H (56-112) IU/L Total Protein 6.9 (6.0-8.0) g/dL Albumin 3.4 (2.9-4.5) g/dL Globulin 3.5 g/dL Albumin/Globulin Ratio 1.0 Departure - Departure Time of Disposition: 14:02 Disposition: DC/Tfer to [facility] Condition: Good Clinical Impression: Pain in left hip - Discharge Information Referrals: Avni Carlson MD [Primary Care Provider] - - My Orders Last 24 Hours: My Active Orders 03/04/17 11:42 Pelvis wo Cont [CT] Stat - Assessment/Plan Last 24 Hours: My Active Orders 03/04/17 11:42 Pelvis wo Cont [CT] Stat
[2017-03-04 14:31] VITALS: BP 159/71
== END 2017-03-04 14:25 ==
LOC: FB.ED 11:33
DX: M25.552 Pain in left hip (principal); J44.9 Chronic obstructive pulmonary disease, unspecified; Z87.891 Personal history of nicotine dependence; Z79.899 Other long term (current) drug therapy
CPT/HCPCS: 36415; 72192; 80053; 85025; 99283; 99284

== ENCOUNTER 2017-04-06 16:00 | Emergency (ER) | payer MEDICARE, BC ==
[2017-04-06 17:28] VITALS: BP 150/109
--- NOTE | 2017-04-07 09:42 | CT ---
INDICATION: Left eye symptoms compatible with stroke on 03/31/2017. CT HEAD WITHOUT CONTRAST: Serial contiguous 2.5 and 5-mm sections were obtained through the brain without contrast 04/06/2017, and compared with 2012. Total Exam DLP = 949.36 mGy-cm. There is again no shift of midline structures. The ventricles are enlarged and are increased in size compared with the previous examination, compatible with progression of central atrophy. Additionally, cortical sulci are more prominent, compatible with progressive cortical atrophy to a lesser extent than central atrophy. Periventricular low-density abnormalities are noted, compatible with mild to moderate microvascular disease and appears somewhat progressive also, compared with the previous examination. Calcifications are noted in the vertebral and internal carotid arteries. Middle cerebral artery calcifications are also noted. Some minimal low-density areas in the anterior limb of the left internal capsule may represent very tiny lacunar infarcts. No definite acute intracranial abnormality was identified, although there are some definite areas of decreased density in the white matter which appear to be new compared with 2013. These likely simply represent interval changes rather than acute process, but should be correlated clinically. No definite acute intracranial abnormality was seen - no bleeding site or hematoma was noted. No cranial abnormality was seen. There is some thickening of the linings of a few of the ethmoidal air cells anteriorly on the right and a possible small retention cyst in the left maxillary antrum. The mastoid air cells were unremarkable. IMPRESSION: 1. 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 2. White matter changes compatible with progressive microvascular disease, but should be correlated clinically, as other cause of leukoencephalopathy cannot be excluded. 3. Progressive central and to a much lesser extent cortical atrophy. 4. Suggest very tiny lacunar infarcts at the anterior limb of the internal capsule on the left. Report was given in person to Dr. Berg at 1713 hours, 04/06/2017. [facility]
--- NOTE | 2017-04-10 08:57 | ER ---
DATE SEEN: 04/06/2017 TIME SEEN: The patient was seen at 1601 hours. HISTORY OF PRESENT ILLNESS: Thought to have perhaps had a CVA. He was seen by Ophthalmology on 03/31/2016 and was felt to have a stroke in his eye. His vision is slightly changed. They noted paling/whiteness of the left eye compared with the right eye. The patient is brought here by his son, who is [place]. His son has a very notable tremor in his left arm, is non-controlled. The patient has decreased hearing. He is not aware of this. He is aware that he has been told that he has decreased hearing, but he has no increased paresis, weakness, numbness, difficulty speaking. His hearing is markedly decreased. I had to talk very loud to him. He denies shortness of breath, chest pain, irregular heartbeat, increased swelling of his ankles, ataxia, head injury, or fall. Review of systems is limited because of his significant dementia. He lives at [facility]. PAST MEDICAL HISTORY: Significant for anemia, heart failure, delirium, gallbladder anomaly, pelvic fracture, dementia, left hip pain. REVIEW OF SYSTEMS: Not capable of managing information very well and did not describe any difficulty or any pains or aches or difficulties. MEDICATIONS: 1. 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 2. MiraLAX for constipation. 3. Albuterol inhaler p.r.n. 4. Tylenol Extra Strength p.r.n. pain. IMMUNIZATIONS: His last pneumococcal shot was in 2014, Prevnar, and also pneumococcal-13, influenza was in 2014. PHYSICAL EXAMINATION: VITAL SIGNS: Blood pressure 180/73 and repeat 150/109, heart rate 62, respirations 18, oxygen saturation 98%, 68.03 kg, BMI is 22.8 kg/m2. HEENT: This pleasant, very hard of hearing man has hearing aids in place with minimal effectiveness. He has mild paling of the retina on the left side compared to the right. No specific retinal lesions noted. He has good reactivity of the pupils. EOMs are normal. Hearing is markedly decreased. Pharynx is without abnormality. Gag is in place. Uvula midline. Tongue is midline. Muscle strength of the tongue is appropriate. NECK: No bruits. No masses. No thyromegaly. HEART: S1, S2. No irregularity of rhythm. ABDOMEN: Soft. No guarding. No abdominal discomfort. No chest wall discomfort. LUNGS: Clear with occasional rales. EXTREMITIES: Without abnormality. No edema. Pulses in upper and lower extremities are normal. SKIN: Normal. Normal integrity. No edema. NEUROLOGICAL: Deep tendon reflexes in upper and lower extremities are symmetrical, 1+ normoactive. Cranial nerves 2 through 12 intact except for decreased hearing. Gait appropriate. Pronator drift negative. Dysmetria negative. He has a slight tremor. Muscle strength in upper and lower extremities intact. Gait is mildly wide based. Mild ataxia but not abnormal for his age. IMAGING DATA: CT of the head demonstrated decreased white matter changes. Increased atrophy since 2012, but no bleed or other significant abnormality noted for CVA. He has old lacunar changes, infarct in the internal capsule, minimal. ASSESSMENT: 1. 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 Increased atrophy as mentioned before. 2. No evidence for stroke in the CODE CLERK tissue; perhaps he had vascular changes in his eye. Per the gas brazer, he had retinal changes, possible "stroke in his left eye". PLAN: The patient is dismissed. No change in medicine. Follow up with doctor as needed. /[id number] DELORIS/CYRUS
== END 2017-04-06 17:25 | disposition home or self-care (01) ==
LOC: FB.ED 16:00
DX: H35.9 Unspecified retinal disorder (principal); G31.1 Senile degeneration of brain, not elsewhere classified; I50.9 Heart failure, unspecified; Z86.73 Personal history of transient ischemic attack (TIA), and cerebral infarction without residual deficits; Z79.899 Other long term (current) drug therapy
CPT/HCPCS: 70450; 99284